=== PATIENT | female | born 1970 | race Caucasian/White ===

== ENCOUNTER 2020-11-27 02:51 | Emergency (ER) | payer OTHER | END 2020-11-27 07:35 | disposition home or self-care (01) | LOC: CSHERS 02:51 | DX: S82.832A Other fracture of upper and lower end of left fibula, initial encounter for closed fracture (principal); F17.210 Nicotine dependence, cigarettes, uncomplicated; W50.2XXA Accidental twist by another person, initial encounter | CPT/HCPCS: 29515 ==

== ENCOUNTER 2024-08-16 23:13 | Emergency (ER) | payer OTHER | END 2024-08-17 01:08 | disposition home or self-care (01) | LOC: CSHERS 23:13 | DX: R55 Syncope and collapse (principal); F10.129 Alcohol abuse with intoxication, unspecified; F17.210 Nicotine dependence, cigarettes, uncomplicated | CPT/HCPCS: 36416; 70450; 93005 ==